=== PATIENT | female | born 1945 ===

== ENCOUNTER 2020-04-27 05:26 | Inpatient (IN) | payer OTHER ==
[~2020-04-27] VITALS: Ht 160 cm; Wt 43.5 kg
[2020-04-27] MEDS ORDERED: LEXAPRO5 M1 PO (05:43)
[2020-04-27] MEDS ORDERED: TRAZODONE50 MG PO (05:44)
[2020-04-27] MEDS ORDERED: ROZEREM8 MG PO (05:45)
[2020-04-27] MEDS ORDERED: REMERON15 M2 PO (05:45)
[2020-04-27] MEDS ORDERED: XANAX0.5 MG PO (05:47)
[2020-04-27] MEDS ORDERED: CELEXA20 MG PO (05:50)
[2020-04-27] MEDS ORDERED: BUSPAR5 MG PO (05:50)
[2020-04-27] MEDS ORDERED: KLOR-CON M1010 ME1 PO (05:51)
[2020-04-27] MEDS ORDERED: LIPITOR40 MG PO (05:51)
[2020-04-27] MEDS ORDERED: PRILOSEC20 M1 PO (05:52)
[2020-04-27] MEDS ORDERED: HYDROCHLOROTHIA25 M1 PO (05:54)
[2020-04-27] MEDS ORDERED: IBUPROFEN600 MG PO (05:54)
[2020-04-27] MEDS ORDERED: FOSAMAX70 M1 PO (05:57)
[2020-04-27] MEDS ORDERED: CALCIUM + D3 E1 EACH PO (05:57)
--- NOTE | 2020-04-27 08:53 | NUR ---
JED MÁRQUEZ a 74 year old F admitted via ambulance from the ADMITTING as a emergency 72 hr. hold admission. Arrived on unit at 0853. ALLERGIES: NKA. Vital signs are: 97.7-76-16 121/78. The client signed the following forms with stated understanding: Authorization For The Release of Medical Information, Clothing List, Consent to Voluntary Admission and Hospitalization, Consent and Release Forms/Receipt of Rights, Acknowledgement of Advance Directive Information, Behavioral Health Consent Form, and Informed Consent of Medications. Admitted under the services of [facility] A search was conducted and hazardous articles were removed. Client was oriented to the unit. NADJA JIMENEZ
[2020-04-27 09:05] VITALS: BP 121/78
--- NOTE | 2020-04-27 10:34 | NUR ---
DR. ALLEN NOTIFIED OF NEW ADMISSION, MEDICAITONS AND DIAGNOSIS UPATED FOR REVIEW. PATIENT WILL BE UNDER THE CARE OF DR. HARTLEY.
--- NOTE | 2020-04-27 11:11 | NUR ---
DR. HARTLEY ON UNIT TO ASSESS PATIENT.
--- NOTE | 2020-04-27 11:46 | NUR ---
AM GROUP PT WAS INTRODUCED INTO THE GROUP THERAPY SESSION WITH NO BACKROUND INFORMATION. PT WAS PLEASANT BUT TEARFUL. WILL ATTEMPT TO ASSESS PT AFTER LUNCH.
--- NOTE | 2020-04-27 12:06 | NUR ---
Observed pt being tearful standing at nurse's station. Went to pt and provided support. Continued to provide reassurance. Pt stated that she didn't want anything to eat. However, this blurb writer did offer pt her lunch tray. Pt was not tearful at that time. Assisted pt in setting up her lunch and observed pt eating before this blurb writer left the room.
--- NOTE | 2020-04-27 13:44 | NUR ---
GROUP A PT DID NOT ATTEND GROUP THERAPY NOR WAS HER ASSESSMENT COMPLETED PT WAS IN BED RESTING. WILL ATTEMPT ASSESSMENT THIS AFTERNOON.
--- NOTE | 2020-04-27 14:40 | NUR ---
Spoke with pt's grandson Boris Antonio who confirmed that he is wanting pt to return home with him and family. Boris stated that pt had recently begun counseling at [facility]. When pt was previously asked, pt was unable to provide name of the agency.
--- NOTE | 2020-04-27 14:42 | NUR ---
Attempted to meet with pt numerous times this afternoon. Each time pt was found sleeping soundly in her bed. Pt did not wake when her name was called.
--- NOTE | 2020-04-27 15:35 | NUR ---
Shift chart check completed.
--- NOTE | 2020-04-27 15:51 | NUR ---
GROUP B / AMILCAR PT DID NOT ATTEND AFTERNOON GROUP THERAPY.PT WAS IN BED SLEEPING SOUNDLY AND DID NOT WAKE TO MY KNOCK OR CALLING HER NAME. ASSESSMENT WILL HAVE TO BE ATTEMPTED NEXT WEEK.
--- NOTE | 2020-04-27 17:04 | NUR ---
P: REPORTING HAVING ANXIETY, TEARFUL, CRYING, SAD AFFECT, DEPRESSED MOOD. I: ONE ON ONE FOR EMOTIONAL SUPPORT, OFFERED QUIET ROOM WITH LOW STIMULI. R: EFFECTIVE BUT CONTINUES TO REPORT BEING ANXIOUS. PATIENT IS ALERT AND ORIENTED TO PERSON, PLACE, TIME AND SITUATION; ABLE TO VOICE NEEDS. MOOD IS DEPRESSED WITH SAD AFFECT. DENIES ANY HALLUCINATIONS, DELUSIONS, HI/SI OR PAIN. INTERACTIVE WITH NURSING STAFF AND PARTICIPATED IN GROUP SESSION. INDEPENDENT WITH ACTIVITIES OF DAILY LIVING, CONTINENT OF BOWEL AND BLADDER. SET UP FOR MEALS, INTAKES IMPROVING FOR SELF/FAMILY REPORTS OF DAILY MEAL INTAKES. AMBUULATORY WITH STEADY GAIT. P: CONTINUE TO MONITOR MOOD, VOICED THOUGHTS OF SI AND MEAL INTAKES. PROIVDE ONE ON ONE FOR EMOTIONAL SUPPORT AND CONTRACT FOR SAFETY.
--- NOTE | 2020-04-27 18:04 | NUR ---
PRN ATIVAN EFFECTIVE. PATIENT ASSISTED TO BED, RESTING QUIETLY.
[2020-04-27 20:00] VITALS: BP 138/68
--- NOTE | 2020-04-27 22:45 | NUR ---
Patient alert and oriented x 4. Mood depressed,sad,calm,and cooperative. No tearfulness noted. No memory deficits noted. Patient denies SI/HI,delusions,or hallucinations. No s/s of responding to internal stimuli. Patient compliant with HS medications without any difficulty. Provided emotional support. Plan to continue to encourage medication compliance. Also continue to offer emotional support. Will continue to monitor moods/behaviors. Q 15 minute safety checks continued and maintained. See [facility] flowsheet for further documentation.
--- NOTE | 2020-04-28 00:17 | NUR ---
24 HR chart check completed.
--- NOTE | 2020-04-28 05:08 | NUR ---
Patient slept approx. 6.5 hours throughout shift. Q 15 minute safety checks continued and maintained.
[2020-04-28 07:41] LABS: ALBUMIN 3.1 gm/dl (3.1-4.5); BUN 11 mg/dl (7-24); CHLORIDE 112 mmol/L (98-107); POTASSIUM 4.1 mmol/L (3.5-5.1); SODIUM 145 mmol/L (136-145)
[2020-04-28 07:54] LABS: ALKALINE PHOSPHATASE 52 U/L (45-117); CHOLESTEROL 108 mg/dL (<200); HDL CHOLESTEROL 43 mg/dl (40-60); LDL CHOLESTEROL 40 mg/dL (9-159); SGOT/AST 21 IU/L (3-35); SGPT/ALT 19 U/L (12-78); THYROID STIM HORMONE (HS) 0.378 uIU/ml (0.358-4.75); TOTAL PROTEIN 6.7 gm/dL (6.4-8.2); TRIGLYCERIDES 125 mg/dl (<150); VLDL CHOLESTEROL 25 mg/dL (6-40)
[2020-04-28 07:55] VITALS: BP 120/59
[2020-04-28 07:56] LABS: VITAMIN D, 25-HYDROXY 34.1 ng/mL (30-100)
--- NOTE | 2020-04-28 18:01 | NUR ---
P- Depressed; Tearful; Withdrawn I- Assess mood, orientaiton, SI/HI, hallucinations, delusions or pain. 1:1 therapeutic interaction with emotional support and ventilation of feelings. Provide patient with low stimuli environment. Education and encouragement on the use of coping skills. Provide meds on time with education on each. R- Alert and oriented x3. Mood depressed and withdrawn. Denies SI/HI, intent or plan. Denies hallucinatoins, delusions, or pain. Patient is tearful at times and mostly when talking on the phone with her family. Pt states that she really misses her grandson and wants to be back home with him. Pt expressed that she does not like to be alone due to losing her three children. Pt stated that she never wanted to hurt herself, she just spoke out of anger and her family took it the wrong way. Reassurance, 1:1 interaction, and empathy effective for patient. No s/s of interacting with internal stimuli. No delusional or paranoid thought process noted. No s/s of distress noted; resps even and unlabored on room air. Ambulates with a steady gait. Voices needs. Medication compliant with no difficulties. P- Assess mood, orientation, SI/HI, hallucinations, delusions, or pain every shift. 1:1 interaction, reassurance and empathy provided when necessary. Encourage to use coping techniques. Provide meds on time with education on each. Q15 minute checks maintained for safety.
--- NOTE | 2020-04-28 18:08 | NUR ---
Shift chart check completed.
[2020-04-28 20:00] VITALS: BP 110/60
--- NOTE | 2020-04-28 22:13 | NUR ---
Patient alert and oriented x 4. Mood depressed,sad,calm,and cooperative. Patient tearful this evening. This nurse asked patient if she needed to talk but patient replied "no I don't want to talk,I just want to go home". No memory deficits noted. Patient denies SI/HI,delusions,or hallucinations. No s/s of responding to internal stimuli. Patient compliant with HS medications without any difficulty. Provided emotional support. Plan to continue to encourage medication compliance. Also continue to offer emotional support. Will continue to monitor moods/behaviors. Q 15 minute safety checks continued and maintained. See [facility] flowsheet for further documentation.
--- NOTE | 2020-04-29 00:21 | NUR ---
24 HR chart check completed.
--- NOTE | 2020-04-29 06:01 | NUR ---
Patient slept approx. 7 hours throughout shift. Q 15 minute safety checks continued and maintained.
[2020-04-29 08:00] VITALS: BP 121/72
--- NOTE | 2020-04-29 11:07 | NUR ---
DR ELISE AND DR KIRKPATRICK ON UNIT TO ASSESS PT, UPDATE PROVIDED.
[2020-04-29 20:00] VITALS: BP 115/63
--- NOTE | 2020-04-29 22:57 | NUR ---
P-DEPRESSED I-PROVIDE 1;1 FOR SUPPORT & VENTILATION OF FEELINGS. ADMINISTER MEDS, MONITOR SLEEP R-MILDLY DEPRESSED. ALERT & ORIENTED X 4. PLEASANT INTERACTIONS. STATED THAT SHE IS FEELING BETTER. SAT IN DINING ROOM TALKING TO SLECT FEMALE PEER. ATE SNACK. COMPLIANT WITH MEDS. DENIES ANY PHYSICAL DISCOMFORT. P-CONTINUE TO MONITOR
--- NOTE | 2020-04-30 05:42 | NUR ---
PT SLEPT PAST 2244
[2020-04-30 07:27] VITALS: BP 128/81
--- NOTE | 2020-04-30 09:13 | NUR ---
Met with pt this AM. Pt reports that she is feeling better and that her sleep has improved. Pt spoke of her history and loss of her children. Pt spoke of her goal to return to living independently in her own apartment with her dog. Pt shared that her Spiritism oscar and knowing that her children are in heaven has provided comfort to pt. Discussed pt recently being connected to community mental health services. Pt is motivated for treatment. She is goal-oriented. Pt made proper eye contact and interacted appropriately. She admitted to a depressed mood but also voiced that she feels her mood is improving.
--- NOTE | 2020-04-30 10:30 | NUR ---
Treatment Plan meeting was held this a.m. with Dr. F[place]not, NATA Horne, RN, AT, ASSOCIATE PROFESSOR OF [employer]ISTORY[employer] and [employer]. Plan for discharge Thursday with return home and follow up arranged.
[2020-04-30] MEDS ORDERED: MIRTAZAPINE15 M2 PO (10:46)
[2020-04-30] MEDS ORDERED: CLONAZEPAM0.5 M2 PO (10:46)
--- NOTE | 2020-04-30 11:42 | NUR ---
AM GROUP/EXERCISE AND REMINISCING PT ATTENDED GROUP THERAPY AND PARTICIPATED IN ALL ACITIVITIES. PT WAS QUIET BUT ENGAGED. PT EXPRESSED NO SUICIDAL IDEATIONS WHILE IN GROUP.
--- NOTE | 2020-04-30 11:57 | NUR ---
Faxed admission clinical to [facility]. Awaiting response.
--- NOTE | 2020-04-30 14:12 | NUR ---
GROUP A PT WAS PRESENT FOR GROUP THERAPY CURLED UP IN A CHAIR AT THE BACK OF THE ROOM SLEEPING. PT DID NOT WAKE DURING GROUP.
--- NOTE | 2020-04-30 18:14 | NUR ---
NO MOODS OR BEHAVIORS NOTED. Q15 MINUTE SAFETY CHECKS MAINTAINED. SEE [facility] FLOWSHEET FOR SPECIFIC MONITORING.
[2020-04-30 19:11] VITALS: BP 144/73
--- NOTE | 2020-04-30 19:34 | NUR ---
24 HR chart check completed.
--- NOTE | 2020-04-30 21:05 | NUR ---
STABLE. ALERT & ORIENTED X 4. PLEASANT INTERACTIONS. STATED THAT SHE IS FEELING BETTER & READY TO GO TOMORROW. ATE SNACK. COMPLIANT WITH MEDS. DENIES ANY PHYSICAL DISCOMFORT.
--- NOTE | 2020-05-01 05:10 | NUR ---
PT HAS SLEPT PAST 2214
--- NOTE | 2020-05-01 07:29 | NUR ---
Patient resting quietly with no c/o discomfort. Respirations easy and regular. Vital signs stable. No overt distress. GIVENS,CHRISTINE
--- NOTE | 2020-05-01 07:38 | NUR ---
SPOKE WITH DR ALLEN AT [phone] RE: PT DC FOR TODAY AND MEDICAL MEDS NEEDING COMPLETED.
[2020-05-01 07:42] VITALS: BP 115/69
--- NOTE | 2020-05-01 09:00 | NUR ---
Treatment Plan meeting was held this a.m. with NATA Horne, RN, AT, [employer] and Mechanical Project Engineer. Plan for discharge today. Pt. will return home.
--- NOTE | 2020-05-01 11:41 | NUR ---
AM GROUP/PUZZLES PT ATTENDED MORNING GROUP THERAPY AND PARTICIPATED BY HELPING TO PUT TOGETHER SEVERAL PUZZLES.PT WAS FOCUSED AND EXPRESSED NO SUICIDAL IDEATIONS WHILE IN GROUP.PT IS EXCITED TO BE DISCHARGED FROM THE UNIT TODAY.
--- NOTE | 2020-05-01 14:03 | NUR ---
GROUP A PT ATTENDED GROUP THERAPY AND PARTICIPATED BY COLORING AND LISTENING TO MUSIC. PT IS ANXIOUS TO BE DISCHARGED THIS AFTERNOON.
--- NOTE | 2020-05-01 14:46 | NUR ---
Met with pt today to discuss pt's discharge and mood. Pt states that she is feeling much better and is happy to be going home today so that she can see her little dog. When asked about what will be different for pt when she returns home, pt stated that she is sleeping better, so she believes that will be a big help. Pt also stated that she plans on spending time with her dog and making plans to find an apartment that will accommodate her dog. Pt confirmed that she will continue with counseling and psychiatric follow-up.
--- NOTE | 2020-05-01 14:49 | NUR ---
Patient is discharging today to her grandson Boris Antonio's home. Follow-up was scheduled at [facility] for psychiatry and counseling. While at [facility], pt's anxiety decreased and mood improved. Pt denies suicidal ideations and is future-oriented as pt states she is making plans to find an apartment for herself and her dog. Pt is no longer tearful. As pt improved, pt became more involved in the programming.
--- NOTE | 2020-05-01 15:21 | NUR ---
pt off unit with grandson. all pt belongings sent with pt. pt had earrings placed in her ears prior to leaving. no adverse moods or behaviors noted.
--- NOTE | 2020-05-02 07:14 | NUR ---
Faxed discharge instructions and discharge summary to [facility]
--- NOTE | 2020-05-02 07:15 | NUR ---
IP 7 days royce per Fabiola at [facility], LCD 05/03, NRD 05/04. Ref # [id number]
== END 2020-05-01 15:21 | disposition home or self-care (01) | DRG 885 ==
LOC: 3N 05:26
PROVIDERS: ADMIT Psychiatry & Neurology Psychiatry
DX: F33.2 Major depressive disorder, recurrent severe without psychotic features (principal); R45.851 Suicidal ideations; I10 Essential (primary) hypertension; E78.5 Hyperlipidemia, unspecified; F41.9 Anxiety disorder, unspecified; M19.90 Unspecified osteoarthritis, unspecified site; F43.10 Post-traumatic stress disorder, unspecified; F17.210 Nicotine dependence, cigarettes, uncomplicated; Z71.6 Tobacco abuse counseling; Z79.899 Other long term (current) drug therapy

== ENCOUNTER 2025-08-02 13:01 | Emergency (ER) | payer MEDICARE ==
[~2025-08-02] VITALS: Wt 33.6 kg
[~2025-08-02 13:01] MED LIST: BUSPAR5 MG PO; CALCIUM + D3 E1 EACH PO; CELEXA20 MG PO; CLONAZEPAM0.5 M2 PO; FOSAMAX70 M1 PO; HYDROCHLOROTHIA25 M1 PO; IBUPROFEN600 MG PO; KLOR-CON M1010 ME1 PO; LEXAPRO5 M1 PO; LIPITOR40 MG PO; MIRTAZAPINE15 M2 PO; PRILOSEC20 M1 PO; REMERON15 M2 PO; ROZEREM8 MG PO; TRAZODONE50 MG PO; XANAX0.5 MG PO
[2025-08-02 13:31] LABS: BASO # 0.1 10*3/uL (0.0-0.1); BASO % 0.9 % (0.0-1.0); EOS # 0.2 10*3/uL (0.0-0.4); EOS % 2.3 % (1.0-4.0); MEAN CELL VOLUME 96.7 fl (81.0-99.0); MEAN CORPUSCULAR HGB 30.7 pg (27.0-31.0); MEAN PLATELET VOLUME 9.8 fl (9.6-12.3); MONO # 0.4 10*3/uL (0.1-1.0); MONO % 5.5 % (3.0-9.0); NEUT # 4.7 10*3/uL (2.3-7.9); NEUT % 68.1 % (47.0-73.0); NUCLEATED RED BLOOD CELL 0.0 % (0.0-0.0); NUCLEATED RED BLOOD CELL 0.0 10*3/uL (0.0-0.0); PLATELET COUNT AUTOMATED 231 10*3/uL (130-400); RED CELL DISTRI WIDTH 15.7 % (0-14.5)
[2025-08-02 13:51] LABS: BUN 13 mg/dl (9-23)
[2025-08-02 13:52] LABS: ETHYL ALCOHOL < 3.0 mg/dl (<3)
[2025-08-02 14:40] LABS: BILIRUBIN Negative (Negative); BLOOD Negative (Negative); CLARITY Clear (Clear); COLOR Yellow (Yellow); KETONE Trace (Negative); LEUKO ESTERASE Trace (Negative); NITRITE Negative (Negative); PH 6.0 (4.5-8.0); SPECIFIC GRAVITY 1.025 (1.001-1.030); UROBILINOGEN 1.0 E.U./dl (0.0-1.0)
[2025-08-02 14:47] LABS: URINE AMPHETAMINES Negative (1000ng/ml); URINE BARBITURATES Negative (200ng/ml); URINE BENZODIAZEPINES Negative (200ng/ml); URINE CANNABINOIDS (THC) Negative (50ng/ml); URINE COCAINE Negative (300ng/ml); URINE METHADONE Negative (300ng/ml); URINE OPIATES Negative (300ng/ml); URINE PHENCYCLIDINE Negative (25ng/ml)
[2025-08-02 15:08] LABS: BACTERIA 1+; MUCOUS TRACE
[2025-08-02] MEDS ORDERED: FEOSOL325 MG PO (17:13)
== END 2025-08-02 16:00 ==
LOC: ED 13:01
PROVIDERS: Nurse Practitioner Family
DX: R41.0 Disorientation, unspecified (principal); I10 Essential (primary) hypertension; F03.94 Unspecified dementia, unspecified severity, with anxiety; K21.9 Gastro-esophageal reflux disease without esophagitis; Z98.890 Other specified postprocedural states